=== PATIENT | female | born 1935 | race Caucasian/White ===

== ENCOUNTER → 2017-04-10 | Outpatient (CLI) | payer MEDICARE ==
--- NOTE | ~2017-04-10 | CT16 ---
[facility] A Service of [facility] RADIOLOGY TEXT RESULTS PATIENT: GERALD MAYER LOCATION: [facility], [place] : 35 UNIT #: [id number] AGE: [address]: Maurice Pillai MD SEX: F ORDER DR: [id number] [place] [id number] O MR#: [id number] Acc #: [id number] NAME: GERALD MAYER : 1935 SEX: F STUDY DATE/TIME: 04/10/2017 12:02 UNIT: [facility] [place] ROOM: STUDY DESCRIPTION: CT Angio Chest for PE Attending Physician: Maurice Pillai M.D. Referring Physician: Maurice Pillai M.D. Ordering Physician: Maurice Pillai M.D. Primary Care Physician: Rk Monte M.D. MEDICAL IMAGING REPORT This report is preliminary unless electronic signature is present. EXAM CT angiogram of the chest INDICATION Shortness of breath and chest pain on the left side, which has been present for 4 days. Pain is worse with deep inspiration. TECHNIQUE Axial CT images were obtained from the thoracic inlet through the dome of the diaphragm following the administration of intravenous contrast material. Following this 3-D reformatted images were obtained. This CT exam was performed with one or more of the following radiation dose reduction techniques: automatic exposure control, adjustment of mA and/or kV according to patient size, and iterative reconstruction. FINDINGS No acute pulmonary thromboembolus is seen. Thoracic aorta is normal in caliber and there is no evidence of dissection. This patient has advanced background emphysematous changes. Superimposed fibrotic changes are seen. These were also present on the prior exam from May 07, 2016. There is bronchiectasis noted at the lung bases bilaterally which probably is worsened when compared to the prior exam. Patient is again noted to have tree-in-bud infiltrates, particularly at the lung bases. Similar findings again were present in April 2006. This could reflect chronic MAC infection. There is some hilar and mediastinal adenopathy with a precarinal node measuring up to 1.8 x 1.6 cm, as well as a right hilar node measuring 1.3 x 1.7 cm and a left hilar node measuring 1.1 x 1.1 cm. The adenopathy actually was present on the prior study as well and is favored to be related to this patients emphysema and pulmonary fibrosis. Coronary artery calcifications are noted. There is no pleural or pericardial effusion. Patient does have 2 areas of consolidation which were not clearly identified on the prior exam. There is a nodule STS. [facility] A Service of [facility] RADIOLOGY TEXT RESULTS PATIENT: GERALD MAYER LOCATION: [facility] : 35 UNIT #: [id number] AGE: [address]: Maurice Pillai MD SEX: F ORDER DR: measuring up to 1.5 x 1.0 cm within the right lower lobe as well as an additional pleural-based nodule within the left upper lobe which measures up to about 6 mm in size. I suspect that these are probably benign but given background emphysematous changes I would suggest a followup CT 3 months. There is probably a prominent extrarenal pelvis on the right. Gallbladder is surgically absent. 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 Review of bony windows does not demonstrate any aggressive osseous abnormalities. IMPRESSION 1. No acute pulmonary thromboembolus seen. 2. Thoracic aorta is normal in caliber. There is no evidence of a dissection although the patient does have significant atherosclerotic involvement. 3. Emphysema as well as superimposed fibrotic changes which overall I do not think are significantly changed when compared to the prior examination. Extensive bronchiectasis is noted at the lung bases bilaterally with tree-in-bud infiltrates again present which certainly could reflect chronic MAC infection. Please correlate with history. 4. This patient has 2 nodular areas, 1 at the right lung base and the other within the left upper lobe which were not clearly present on prior examination. I suspect they are probably benign but suggest attention to them on a followup CT in 3 months. Dictated by... Kayla Hedrick M.D. THIS IS AN ELECTRONICALLY VERIFIED REPORT Kayla Hedrick M.D. at 04/11/2017 3:24 PM AFF/reza TD: 04/10/2017 17:52 JOB #: [id number] MEDICAL IMAGING REPORT Page 1 of 1
[2017-04-10 11:55] LABS: POC - CREATININE 0.91 mg/dL (0.44-1.03); POC - GFR >60.0 mL/min (>60)
== END | disposition home or self-care (01) ==
LOC: SCT 09:15
PROVIDERS: Internal Medicine
DX: R07.9 Chest pain, unspecified (principal); R06.02 Shortness of breath; J43.9 Emphysema, unspecified; J47.9 Bronchiectasis, uncomplicated; R91.8 Other nonspecific abnormal finding of lung field
CPT/HCPCS: 71275; 82565; Q9967